=== PATIENT | male | born 1945 | race Caucasian/White ===

== ENCOUNTER → 2016-04-06 | Outpatient (CLI) | payer OTHER ==
[~2016-04-06] MED LIST: HYDR-5688 PO; IBUP-1050 PO; LPT20 PO; TAMS0.4C38 PO
== END | disposition home or self-care (01) ==
LOC: C.CPL 09:31
DX: Z01.810 Encounter for preprocedural cardiovascular examination (principal)

== ENCOUNTER → 2016-11-10 | Outpatient (CLI) | payer OTHER ==
--- NOTE | 2016-11-10 11:56 | DIAGNOSTIC IMAGING REPORT ---
CHEST 2 VIEWS ROUTINE HISTORY: 70 years-old Male COUGH R06.00,PAIN IN RT SHOULDER M25.511 acute cough with right shoulder pain COMPARISON: CT abdomen 07/30/2009 TECHNIQUE: Frontal and lateral views of the chest. FINDINGS: The cardiac silhouette is mildly enlarged. There is atherosclerosis of the aorta. No pneumothorax. Patchy multifocal perihilar and bibasilar alveolar opacities are noted with small right pleural effusion. These findings are best seen on the frontal projection. Postsurgical or post traumatic changes of the distal clavicles are noted. Degenerative changes are seen about the spine. IMPRESSION: 1. Patchy perihilar and bibasilar opacities suggest atelectasis or pneumonia. 2. Trace right pleural effusion. The above report was generated using voice recognition software. It may contain grammatical, syntax or spelling errors. Electronically signed by: Aniceto Christopher M.D. 11/10/2016 11:55 AM Dictated Date/Time: 11/10/2016 11:51 AM
--- NOTE | 2016-11-10 12:12 | DIAGNOSTIC IMAGING REPORT ---
R SHOULDER MIN 2 VIEWS ROUTINE HISTORY: 70 years-old Male COUGH R06.00,PAIN IN RT SHOULDER M25.511 acute right shoulder pain status post fall. COMPARISON: Chest radiograph of same day TECHNIQUE: 3 views of the right shoulder FINDINGS: The distal 1.5 cm portion of the right clavicle is absent suggesting posttraumatic or post surgical changes. Moderate degenerative changes of the glenohumeral joint are noted with background mild bone demineralization. There is spurring of the greater tuberosity with ill-defined linear calcifications noted inferior to the acromion. Decreased coracohumeral interval is noted, 5 mm. Ossifications measuring up to 6 mm are noted lateral to the greater tuberosity suspicious for fragmented osteophytes. 7 mm ossification adjacent to the medial humeral neck is suspicious for loose body. No acute fracture or dislocation is identified. And midlung lawrence are clear. IMPRESSION: 1. Moderate glenohumeral osteoarthritis without acute fracture or dislocation. 2. 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 3. Probable subacromial impingement with intra-articular loose bodies within the glenohumeral joint. 4. Linear calcifications inferior to the acromium may reflect calcific tendinosis or calcific bursitis. The above report was generated using voice recognition software. It may contain grammatical, syntax or spelling errors. Electronically signed by: Aniceto Christopher M.D. 11/10/2016 12:10 PM Dictated Date/Time: 11/10/2016 12:04 PM
== END | disposition home or self-care (01) ==
LOC: C.RAD 11:09
PROVIDERS: ATTEND Family Medicine
DX: R06.00 Dyspnea, unspecified (principal); M25.511 Pain in right shoulder; E11.9 Type 2 diabetes mellitus without complications; I10 Essential (primary) hypertension

== ENCOUNTER → 2017-01-05 | Outpatient (CLI) | payer OTHER ==
--- NOTE | 2017-01-05 16:00 | ECHOCARDIOGRAM REPORT ---
*NOTICE TO RECEIVING LIBERTARIAN AGENCY This information is strictly Confidential and protected under [place] law. [place] law prohibits you from making any further disclosure of this information unless further disclosure is expressly permitted by the written consent of the person to whom it pertains or is authorized by law. A general authorization for the release of medical or other information is not sufficient for this purpose. Hospital accepts no responsibility if the information is made available to any other person, INCLUDING THE PATIENT. Interpretation Summary * Name: MOOK CHOI JR Study Date: 01/05/2017 01:04 PM BP: 176/84 mmHg * Patient Location: [facility] HR: 63 * : 1945 (M/d/yyyy) Gender: Male Height: 65 in * Age: 71 yrs Ethnicity: CA Weight: 178 lb * Ordering Physician: Eliot Green * Referring Physician: Eliot Green * Performed By: Tram Kendall RDCS * * Reason For Study: Edema, Congestive Heart Failure * BSA: 1.9 m2 * Normal biventricular systolic function. * Mild concentric left ventricular hypertrophy. * Class 1 left ventricular diastolic dysfunction. * Borderline left atrial dilatation. * Trace pulmonic, mitral, and tricuspid regurgitation. * Normal estimated right ventricular systolic and central venous pressures. * -- Conclusions -- * Aortic valve sclerosis mild, without significant aortic valvular stenosis. Procedure Details * A complete two-dimensional transthoracic echocardiogram was performed (2D, M-mode, Doppler and color flow Doppler). Left Ventricle * The left ventricle is normal in size. * There is mild concentric left ventricular hypertrophy. * Ejection Fraction = 65-70%. * Left ventricular systolic function is normal. * A full diastolic examination was done with clinical findings of Class I diastolic dysfunction. * The left ventricular wall motion is normal. Right Ventricle * The right ventricle is normal in size and function. * The right ventricular systolic function is normal as assessed by tricuspid annular plane systolic excursion (TAPSE) (normal >1.5 cm). Atria * Borderline left atrial enlargement. * Right atrial size is normal. * No ASD detected; PFO is not assessed. Mitral Valve * The mitral valve is normal. * There is no mitral valve stenosis. * There is trace mitral regurgitation. Tricuspid Valve * The tricuspid valve is normal. * There is no tricuspid stenosis. * There is trace tricuspid regurgitation. * Right ventricular systolic pressure is normal. Aortic Valve * The aortic valve is trileaflet. * The aortic valve opens well. * Aortic valve sclerosis mild, without significant aortic valvular stenosis. * No aortic regurgitation is present. Pulmonic Valve * The pulmonic valve is not well visualized. * There is no pulmonic valvular stenosis. * Trace pulmonic valvular regurgitation. Great Vessels * The aortic root is normal size. Pericardium/Pleural * There is no pericardial effusion. Great Vessels * Normal inferior vena cava diameter and respiratory variation suggests normal central venous pressure. MMode 2D Measurements and Calculations IVSd 1.4 cm IVSs 1.6 cm LVIDd 4.7 cm LVIDs 3.1 cm LVPWd 1.4 cm LVPWs 1.8 cm IVS/LVPW 1.0 FS 35.0 % EDV(Teich) 102.6 ml ESV(Teich) 36.7 ml EF(Teich) 64.3 % EDV(cubed) 104.2 ml ESV(cubed) 28.6 ml EF(cubed) 72.6 % % IVS thick 18.0 % % LVPW thick 30.0 % LV mass(C)d 260.1 grams LV mass(C)dI 138.2 grams/m\S\2 LV mass(C)s 203.2 grams LV mass(C)sI 107.9 grams/m\S\2 SV(Teich) 66.0 ml SI(Teich) 35.0 ml/m\S\2 SV(cubed) 75.6 ml SI(cubed) 40.2 ml/m\S\2 Ao root diam 2.8 cm Ao root area 6.1 cm\S\2 ACS 1.6 cm LA dimension 3.9 cm LA/Ao 1.4 LVOT diam 1.7 cm LVOT area 2.4 cm\S\2 LVAd ap4 27.1 cm\S\2 LVLd ap4 7.8 cm EDV(MOD-sp4) 79.8 ml EDV(sp4-el) 80.1 ml LVAs ap4 13.4 cm\S\2 LVLs ap4 6.4 cm ESV(MOD-sp4) 26.2 ml ESV(sp4-el) 23.9 ml EF(MOD-sp4) 67.2 % EF(sp4-el) 70.1 % LVAd ap2 26.9 cm\S\2 LVLd ap2 7.5 cm EDV(MOD-sp2) 88.5 ml EDV(sp2-el) 81.6 ml LVAs ap2 12.8 cm\S\2 LVLs ap2 6.0 cm ESV(MOD-sp2) 27.5 ml ESV(sp2-el) 23.4 ml EF(MOD-sp2) 69.0 % EF(sp2-el) 71.4 % LVLd %diff -3.49 % EDV(MOD-bp) 84.4 ml LVLs %diff -6.98 % ESV(MOD-bp) 27.5 ml EF(MOD-bp) 67.4 % SV(MOD-sp4) 53.6 ml SI(MOD-sp4) 28.5 ml/m\S\2 SV(MOD-sp2) 61.1 ml SI(MOD-sp2) 32.4 ml/m\S\2 SV(MOD-bp) 56.8 ml SI(MOD-bp) 30.2 ml/m\S\2 SV(sp4-el) 56.2 ml SI(sp4-el) 29.9 ml/m\S\2 SV(sp2-el) 58.2 ml SI(sp2-el) 30.9 ml/m\S\2 Doppler Measurements and Calculations MV E max daniel 88.8 cm/sec MV A max daniel 121.2 cm/sec MV E/A 0.73 MV V2 max 119.1 cm/sec MV max PG 5.7 mmHg MV V2 mean 51.6 cm/sec MV mean PG 1.4 mmHg MV V2 VTI 44.6 cm MVA(VTI) 1.5 cm\S\2 MV P1/2t max daniel 94.9 cm/sec MV P1/2t 145.4 msec MVA(P1/2t) 1.5 cm\S\2 MV dec slope 191.2 cm/sec\S\2 MV dec time 0.19 sec Ao V2 max 223.2 cm/sec Ao max PG 20.0 mmHg Ao max PG (full) 11.7 mmHg Ao V2 mean 136.9 cm/sec Ao mean PG 9.2 mmHg Ao mean PG (full) 5.3 mmHg Ao V2 VTI 42.4 cm CORNELIA(I,A) 1.6 cm\S\2 CORNELIA(I,D) 1.6 cm\S\2 CORNELIA(V,A) 1.5 cm\S\2 CORNELIA(V,D) 1.5 cm\S\2 LV V1 max PG 8.3 mmHg LV V1 mean PG 4.0 mmHg LV V1 max 144.2 cm/sec LV V1 mean 91.6 cm/sec LV V1 VTI 29.3 cm SV(Ao) 258.6 ml SI(Ao) 137.3 ml/m\S\2 SV(LVOT) 68.8 ml SI(LVOT) 36.5 ml/m\S\2 PA V2 max 155.3 cm/sec PA max PG 9.6 mmHg PI max daniel 131.1 cm/sec PI max PG 6.9 mmHg PI dec slope 120.1 cm/sec\S\2 PI P1/2t 319.8 msec TR max daniel 238.6 cm/sec
== END | disposition home or self-care (01) ==
LOC: C.CPL 12:56
PROVIDERS: ATTEND Family Medicine
DX: I50.9 Heart failure, unspecified (principal); R60.9 Edema, unspecified; E03.9 Hypothyroidism, unspecified

== ENCOUNTER → 2017-02-04 | Outpatient (CLI) | payer OTHER ==
[2017-02-04 13:06] LABS: BASO % 0.7 %; COMPLETE YES; EOS % 3.4 %; HEMATOCRIT 53.3 % (42-52); IG% 0.4 %; LYMPH % 10.8 %; LYMPH ABS # 1.51 K/uL (1.2-3.4); MEAN CELL VOLUME 90.6 fL (80-100); MEAN CORPUSCULAR HGB CONC 34.1 g/dl (32-36); MEAN PLATELET VOLUME 10.7 fL (7.4-10.4); MONO % 8.6 %; NEUT % 76.1 %; PLATELET COUNT 216 K/uL (130-400); RED BLOOD COUNT 5.88 M/uL (4.7-6.1); WHITE BLOOD COUNT 13.94 K/uL (4.8-10.8)
[2017-02-04 13:23] LABS: ALT/SGPT 57 U/L (12-78); AST/SGOT 54 U/L (15-37); BLOOD UREA NITROGEN 18 mg/dl (7-18); BUN/CREATININE RATIO 13.7 (10-20); CALCIUM 8.4 mg/dl (8.5-10.1); CARBON DIOXIDE 25 mmol/L (21-32); CHLORIDE 106 mmol/L (98-107); CREATININE 1.33 mg/dl (0.60-1.40); GLUCOSE 143 mg/dl (70-99); POTASSIUM 4.2 mmol/L (3.5-5.1); SODIUM 136 mmol/L (136-145)
[2017-02-04 13:28] LABS: ALB/GLOB RATIO 0.9 (0.9-2); ALKALINE PHOSPHATASE 84 U/L (45-117)
== END | disposition home or self-care (01) ==
LOC: C.LAB 11:45
PROVIDERS: ATTEND Internal Medicine Pulmonary Disease
DX: I11.0 Hypertensive heart disease with heart failure (principal); I50.9 Heart failure, unspecified; E11.9 Type 2 diabetes mellitus without complications

== ENCOUNTER → 2017-02-09 | Outpatient (CLI) | payer OTHER ==
[~2017-02-09] MED LIST changes: +LISI-461 PO; +OPTIRAY 320 IV PRN
--- NOTE | 2017-02-09 08:44 | DIAGNOSTIC IMAGING REPORT ---
CT OF THE CHEST WITH IV CONTRAST CLINICAL HISTORY: FATIGUE, HYPERLIPIDEMIA, HYPERTENSION COMPARISON STUDY: Chest x-ray dated December 10, 2016 TECHNIQUE: Following the IV administration of 92 mL of Optiray-320, CT of the thorax was performed from the thoracic inlet to the lung bases. Images are reviewed in the axial, sagittal, and coronal planes. IV contrast was administered without complication. A dose lowering technique was utilized adhering to the principles of ALARA. CT DOSE: 891.43 mGy.cm FINDINGS: Thyroid: Imaged portions of the thyroid gland are normal in appearance. Thoracic aorta: The thoracic aorta is normal in course and caliber, noting standard 3-vessel arch anatomy. No aneurysm or dissection is seen. Pulmonary vasculature: The pulmonary trunk is normal in caliber. There are no central filling defects identified to suggest pulmonary embolus. Note that this examination was not protocoled for the evaluation of pulmonary emboli. HEART: The heart is borderline enlarged with minor coronary artery calcifications. Lungs and pleural spaces: The lungs and pleural spaces are clear. There is mild dependent atelectasis. There are areas of mild air trapping. There is a solid 3 mm left lower lobe pulmonary nodule as imaged on image #[id number]. In the absence of significant risk factors, no further follow-up is indicated. In a high risk patient, a 12 month follow-up is optional. There is mild lower lobe bronchial wall thickening with areas of mucous plugging. Mediastinum: There is no mediastinal lymphadenopathy. Mandi: Clear. Axilla: Clear. Upper abdomen: Partially visualized upper abdominal viscera is within normal limits. Skeletal structures: There are no lytic or blastic osseous lesions. Postsurgical changes are evident. IMPRESSION: 1. Lower lobe bronchial wall thickening with areas of mucous plugging 2. Slight mosaic attenuation suggesting air trapping 3. 3 mm solid left lower lobe pulmonary nodule. In the absence of significant risk factors, no further follow-up imaging is indicated Electronically signed by: Feliz Crenshaw M.D. 02/09/2017 8:42 AM Dictated Date/Time: 02/09/2017 8:21 AM
== END | disposition home or self-care (01) ==
LOC: C.CTS 08:03
PROVIDERS: ATTEND Internal Medicine Pulmonary Disease
DX: E78.5 Hyperlipidemia, unspecified (principal); I10 Essential (primary) hypertension; R53.83 Other fatigue; R91.1 Solitary pulmonary nodule; R91.8 Other nonspecific abnormal finding of lung field

== ENCOUNTER → 2017-02-22 | Outpatient (CLI) | payer OTHER ==
[~2017-02-22] MED LIST changes: -LISI-461 PO; -OPTIRAY 320 IV PRN
== END | disposition home or self-care (01) ==
LOC: C.LAB 14:25
PROVIDERS: ATTEND Internal Medicine Pulmonary Disease
DX: R53.83 Other fatigue (principal); R91.1 Solitary pulmonary nodule

== ENCOUNTER → 2017-02-24 | Day surgery (SDC) | payer OTHER ==
[~2017-02-24] VITALS: Ht 177.8 cm; Wt 110.0 kg
[~2017-02-24] MED LIST changes: +FENTANYL CITRATE INJ 50 MCG/1 ML 2 ML VIAL IV ONE; +HydrALAZINE HCL 20 MG/ML VIAL IV. ONE; +HydrALAZINE HCL 20 MG/ML VIAL ONE; +LIDOCAINE 4% INH SOLN 4 ML BTL NEB ONE; +LIDOCAINE HCL 2% LOCAL 50ML VIAL INSTIL ONE; +LIDOCAINE MPF 4% LOCAL INJ 5 ML AMP INH ONE; +LIDOCAINE VISCOUS 2% 100ML TOP ONE; +LISI-461 PO; +MIDAZOLAM HCL 5 MG/ML 1 ML VIAL IV ONE
[2017-02-24 08:15] VITALS: BP 183/89; PULSE 68; TEMP 36.4; O2SAT 96; Ht 177.8 cm; Wt 110.0 kg
[2017-02-24 09:00] LABS: PTT PATIENT 27.4 SECONDS (21.0-31.0)
--- NOTE | 2017-02-24 09:19 | History & Physical Bridge Note ---
H&P Re-Evaluation Bridge Note: I have examined the patient, reviewed the History & Physical and in the interval since the performance of the History & Physical I have noted the following changes of clinical significance: No changes noted
--- NOTE | 2017-02-24 09:20 | Pre Sedation Assessment ---
Pre Sedation Assessment General Date of Sedation: Feb 24, 2017. Vital Signs Past 12 Hours Date Time Temp Pulse Resp B/P (MAP) Pulse Ox O2 Delivery O2 Flow Rate FiO2 02/24/17 08:15 36.4 68 20 183/89 (120) 96 Room Air Pre-Sedation Airway Assessment Smoking Status: Never Smoker Hx of Sleep Apnea: No Short Thick Neck: Yes Thyro-mental Distance: < or =3 Finger Breadths Oral Cavity: WNL Mallampati Classification: Class III ASA Classification: Class II NPO Status Date of Last Intake of Fluids: Feb 23, 2017 Time of Last Intake of Fluids: 1800 Date of Last Intake of Solids: Feb 23, 2017 Time of Last Intake of Solids: 1700 Procedure Planning Contraindications for Sedation: None Current Medications Reviewed: Yes Notes The planned sedation has been discussed with the patient. Informed Consent was obtained. I have identified the patient, determined the appropriateness of sedation and have assessed the patient immediately prior to the procedure. All medicine(s) and interventions are by my order.
--- NOTE | 2017-02-24 10:05 | Discharge Instructions ---
Discharge Instructions Date of Service Feb 24, 2017. Admission Reason for Admission: Pulmonary Nodule *Dr Sharp To Do* Discharge Discharge Diagnosis / Problem: Chronic Mucopurulent Bronchitis Discharge Goals Goal(s): Therapeutic intervention Activity Recommendations Activity Limitations: resume your previous activity Lifting Limitations: none Exercise/Sports Limitations: none May Resume Sexual Activity: when tolerated Shower/Bathe: no limitations Driving or Machine Use: resume 1 day after discharge None . Current Hospital Diet Patient's current hospital diet: Discharge Diet Recommended Diet: Regular Diet, Low Sodium Diet (2gm Na) Fluid Restriction: None Pending Studies Studies pending at discharge: no Medical Emergencies . Who to Call and When: Medical Emergencies: If at any time you feel your situation is an emergency, please call 911 immediately. . Non-Emergent Contact Non-Emergency issues call your: [employer] Call Non-Emergent contact if: temperature is above 101 . . "Provider Documentation" section prepared by Ralph Sharp. . VTE Core Measure Inpt VTE Proph given/why not?: Treatment not indicated
[2017-02-24 10:15] VITALS: BP 138/77; PULSE 80; TEMP 36.8; O2SAT 96
[2017-02-24 10:30] VITALS: BP 131/65; PULSE 78; TEMP 36.7; O2SAT 95
--- NOTE | 2017-02-24 10:41 | OPERATIVE REPORT ---
DATE OF OPERATION: 02/24/2017 PROCEDURE: Fiberoptic bronchoscopy with bronchoalveolar lavage. INDICATIONS: Solitary pulmonary nodule/chronic chest congestion in a patient with chronic mucopurulent bronchitis and possible mucoid plugging. ANESTHESIA PREOPERATIVELY: None. ANESTHESIA DURING THE PROCEDURE: 3 mg IV Versed, 50 mcg IV fentanyl, 5 mg IV hydralazine, 20 mL of 2% Xylocaine spray above and below the cords, and 4% viscous Xylocaine intranasally. DESCRIPTION OF PROCEDURE: Fiberoptic bronchoscope was inserted into the right naris with minimal difficulty and passed to the level of the true vocal cords. The cords appeared to approximate normally with phonation without evidence of lesions or paralysis. The nasopharyngeal aperture was narrowed and appeared to obstruct with moderate sedation, suggesting obstructive sleep apnea probability. The cords were anesthetized. The scope was passed into the trachea and right and left tracheobronchial tree. The steve was sharp. The right main stem bronchus was explored initially and no endobronchial lesions were seen. Right upper lobe, the apical, posterior and anterior segments, bronchus intermedius, right middle lobe and the medial and lateral segments, and all basilar segments of right lower lobe were found to be free of endobronchial lesions. A moderate amount of mucopurulent secretion was lavaged and aspirated from the right lower lobe segmental bronchi until clear. Mucus pitting with bronchial crypts and clefts were prominently displayed throughout the right tracheobronchial tree and a moderate degree of inflammatory mucosal change was seen globally. Left tracheobronchial tree was then explored and similar findings were noted. The left upper lobe, the apical-posterior and anterior segments, lingular subdivision with the superior and inferior segments and all basilar segments of left lower lobe were found to be free of endobronchial lesions, but a moderate amount of mucopurulent secretion was lavaged from all lobar segments until clear. Mucous pitting was also prominently displayed. There was a moderate to severe degree of inflammatory/erythematous mucosal change seen with easy friability. Following lavage with normal saline, there was a steady ooze of hemorrhage, which eventually abated spontaneously. No brushings or biopsies were attempted. The procedure was terminated. The patient was given a treatment of Xopenex 1.25 mg and transferred to the medical treatment unit in hemodynamically stable without signs of respiratory compromise. The patient did have a marked hypertensive response to the procedure and was given 5 mg IV hydralazine with normalization of his blood pressure. We will await microbiological and cytologic examination of the bronchial washings. I attest to the content of the Intraoperative Record and any orders documented therein. Any exception s are noted below.
[2017-02-24 10:45] VITALS: BP 131/65; PULSE 76; O2SAT 96
[2017-02-24 11:15] VITALS: BP 131/65; PULSE 72; TEMP 36.5; O2SAT 96
[2017-02-24 11:47] VITALS: BP 120/67; PULSE 68; TEMP 36.9; O2SAT 96
== END | disposition home or self-care (01) ==
LOC: C.ACU 07:43
PROVIDERS: ATTEND Internal Medicine Pulmonary Disease
DX: R91.1 Solitary pulmonary nodule (principal); R09.89 Other specified symptoms and signs involving the circulatory and respiratory systems; J41.1 Mucopurulent chronic bronchitis; I50.9 Heart failure, unspecified; E11.9 Type 2 diabetes mellitus without complications; R53.83 Other fatigue; I11.0 Hypertensive heart disease with heart failure; E66.9 Obesity, unspecified; Z79.899 Other long term (current) drug therapy

== ENCOUNTER → 2017-03-09 | Outpatient (CLI) | payer OTHER ==
[~2017-03-09] MED LIST changes: -FENTANYL CITRATE INJ 50 MCG/1 ML 2 ML VIAL IV ONE; -HYDR-5688 PO; -HydrALAZINE HCL 20 MG/ML VIAL IV. ONE; -HydrALAZINE HCL 20 MG/ML VIAL ONE; -LIDOCAINE 4% INH SOLN 4 ML BTL NEB ONE; -LIDOCAINE HCL 2% LOCAL 50ML VIAL INSTIL ONE; -LIDOCAINE MPF 4% LOCAL INJ 5 ML AMP INH ONE; -LIDOCAINE VISCOUS 2% 100ML TOP ONE; -MIDAZOLAM HCL 5 MG/ML 1 ML VIAL IV ONE
--- NOTE | 2017-03-10 04:57 | PAP/PSG TECHNICIAN REPORT ---
[facility] [employer] Polysomnogram Report Study name: None Report date: 03/10/2017 Study date: 03/09/2017 Referring Physician: Ralph Sharp MD Name: MOOK CHOI Interpreting Physician: Jose Armando Jones D.O. Date of : 1945 Manager Grocery: Marie Smith [facility]. Sex: Male Age: 71 StudyType: PSG Weight: 246 lbs 18.5 inches Height: 71 years, Height 5' 10" Neck Circum: BMI: 35.29 Medications: Furosemide 40 mg, Lisinopril 10 mg, Adviar 250-50 MCG, Albuterol ,Omeprazole, Tamsulosin Patient History 71 yr. old male here for a diagnostic sleep study. Patient complains of EDS, snoring, and witnessed apneas. Patient stated he will get up at 3 am. ESS . Parameters Monitored NPSG: E1-M2, E2-M1, Fp1-M2, Fp2-M1, F3-M2, F4-M2, F4-M1, C3-M2, C4-M2, C4-M1, O1-M2, O2-M2, O2-M1, T3-M2, T4-M1, P3-M2, P4-M1, CHIN1, CHIN2, HR, EKG, Legs, PFLOW, SNOR, FLOW, CFLOW, Tidal Volume, THOR, ABDO, SpO2, PLTH, CPRESS, ETCO2 Wave, ETCO2, pH Sleep Architecture Sleep Stages Time at Lights Off 8:29:10 PM STAGES Time (min.) TST (%) Time at Lights On 2:56:10 AM Wake 82.0 -- Total Recording Time (TRT) 388.00 min. N1 37.0 12 Total Sleep Period (TSP) 324.0 min. N2 187.5 61 Total Sleep Time (TST) 305.0min. N3 32.5 11 Awake Time 83.0 min. REM 48.0 16 Wake after Sleep Onset 73.5 min. Sleep Efficiency (SE) 79 % Sleep Onset Latency (ZACHARY) 8.5 min. Number of Stage 1 Shifts None Awakenings 23 Stage Changes 94 Number of REM periods 5 REM 48.0 16 REM Latency 36.0 min. NREM 257.0 84 Body Position Analysis Supine Right Left Side Prone Vertical Total Sleep Time (min.) 44.6 120.0 0.0 120.00 0.0 207.5 Total Sleep Time (%) 0% 39% 0% 39 0% 100% Total Sleep Time REM (min.) 0.0 21.0 0.0 None 0.0 27.0 Total Sleep Time NREM (min.) 0.0 99.0 0.0 None 0.0 158.0 Intermittent Wake (min.) 44.6 14.1 0.0 None 0.0 22.5 Total Sleep Period (%) 0% None None None None None Arousals Myoclonus (PLM) * Events Count Index Events Count Index Spontaneous 12 2 Events Awake (PLMW) 47 34.4 Respiratory 5 1.0 Events Asleep w/ Arousal (PLMA) 7 1.4 PLM 7 1 Events Asleep w/o Arousal (PLMS) 33 6.5 Snoring 19 4 Total Asleep 40 7.9 Total 41 8 Total 87 13 Respiratory Analysis * CA OA MA CH H RERA Total Count 0 0 0 0 23 0 23 Index 0.0 0.0 0.0 0 4.5 0 4.5 Mean Duration 0.0 0.0 0.0 0.00 35.7 0.0 35.7 Longest Duration 0.0 0.0 0.0 0.00 0.0 0.0 84.5 Respiratory Event Summary Total Supine ~Supine Right Left Prone REM NREM Apneas Count 0 N/A 0 0 N/A N/A 0 0 Index 0.0 N/A 0 0.0 N/A N/A 0 0 Hypopneas (4% Desat) Count 23 N/A 23 0 N/A N/A 6 17 Index 4.5 N/A 5 0.0 N/A N/A 7.5 4.0 Apneas & All Hypopneas Count 23 N/A 23 0 N/A N/A 6 17 Index 4.5 N/A 5 0 N/A N/A 7.5 4.0 Respiratory Events (Professional Services Specialist+All Hyp+RERA) Count 23 N/A 23 0 N/A N/A 6 17 Index 4.5 N/A 5 0.0 N/A N/A 7.5 4.0 Respiratory Related Arousal Count 5 N/A 5 0 N/A N/A 0 5 Index 1.0 N/A 1 0 N/A N/A 0 1 Snoring Analysis Supine Right Left Prone REM NREM Total Snore duration 112.1 min Snores count N/A 1,242 N/A N/A 356 2,900 3,256 Snore mean duration 2.1 Sec Snores index N/A 621 N/A N/A 445.0 677.0 640.5 TST with snoring (%) 36.7% Desaturation Event Summary: Minimum %SpO2 Event Count Mean/Min/Max Duration(sec.) Desaturation Index % Time In Bed > 90 24 45.0 / 25.0 / 60.0 4.2 89.9 86 - 90 0 N/A 0.0 10.0 81 - 85 0 N/A 0.0 0.1 76 - 80 0 N/A 0.0 0.0 71 - 75 0 N/A 0.0 0.0 66 - 70 0 N/A 0.0 0.0 61 - 65 0 N/A 0.0 0.0 56 - 60 0 N/A 0.0 0.0 51 - 55 0 N/A 0.0 0.0 < 50 0 N/A 0.0 0.0 Total REM NREM Awake <50% 0.0 min. 0.0 min. 0.0 min. 0.0 min. 51 - 60% 0.0 min. 0.0 min. 0.0 min. 0.0 min. 61 - 70% 0.0 min. 0.0 min. 0.0 min. 0.0 min. 71 - 80% 0.0 min. 0.0 min. 0.0 min. 0.0 min. 81 - 90% 38.4 min. 15.3 min. 18.8 min. 4.3 min. 91 - 100% 341.2 min. 32.7 min. 238.2 min. 70.4 min. Average 93 91 93 93 Minimum SpO2 82 86 86 82 Desaturation Event Index 3.7 8.8 3.3 2.2 # Desat. Events below 89% 6 4 2 N/A Time(%) with Saturation below 89% 2.5 1.2 1.0 0.3 Time(min.) with Saturation below 89% 9.7 4.7 3.9 1.0 Time (mins) REM (mins) NREM (mins) % of TST SpO2 Below 90% 18 7 N11 7.0 SpO2 Below 88% 5 0 0 1 Heart Rate Analysis Min (bpm) Max (bpm) Average (bpm) Awake 34 85 62 NREM 48 77 58 REM 50 72 57 Overall 48 77 58 Supplemental O2 Values Minimum O2 level: None Value Start Time End Time Manager [employer] Comments Mr. Choi slept in the right, upright, and supine and prone positions. No cardiac arrhythmia or PLMs noted. No bruxism noted. Snoring was noted and scored as a 4 on a scale of 0 through 5. (0=no snoring, 5=snoring loud enough to be heard through a closed door or down the chase way) Mr. Choi awoke to use the restroom once during the night. Mr. Choi stated, that was a normal night. The final report will be interpreted and signed by a sleep physician. The completed physician report will then be placed in the patient medical record. Therapy (cm H2O) 0 TIB (min.) 387.0 TST (min.) 305.0 Sleep Onset (min.) 8.5 REM Onset From Sleep (min.) 36.0 Sleep Efficiency % 79 Wakefulness (%) 21 Wakefulness (min.) 83.0 NREM 1 (%) 12 NREM 1 (min.) 37.0 NREM 2 (%) 61 NREM 2 (min.) 187.5 NREM 3 (%) 11 NREM 3 (min.) 32.5 REM (%) 16 REM (min.) 48.0 # Arousals 41 Arousal Index 8 # Snore 3,256 Snore Index 640.5 AHI 4.5 AHI Supine N/A AHI Non-Supine 5 NREM AHI 4.0 REM AHI 7.5 RDI 4.5 # Obstructive Apnea 0 # Central Apnea 0 # Mixed Apnea 0 # Hypopneas 23 RERAs 0 Total Respiratory Events 24 Time Below SpO2 89% (min.) 8.7 Mean NREM SpO2 (%) 93 Mean REM SpO2 (%) 91 Mean Sleep SpO2 (%) 93 Min NREM SpO2 (%) 86 Min REM SpO2 (%) 86 Position Supine (min.) 44.6 Position Non-supine (min.) 305.0 LM Index Sleep 7.9 LM Index NREM 7.9 LM Index REM 7.5 Mean Heart Rate (bpm) 58 Min Heart Rate (bpm) 48
--- NOTE | 2017-03-12 17:29 | Sleep Study ---
Sleep Study Report Date of Service: 03/09/2017 Sleep Study Report CLINICAL DATA: The patient is a 71-year-old male with a history of snoring, observed apneas, and excessive daytime somnolence. His Meraux Sleepiness Scale score was 13 out of a possible 24. This was an in-lab overnight polysomnography SLEEP ARCHITECTURE: The total sleep period was 324 minutes. The total sleep time was 305 minutes. The sleep efficiency was moderately reduced to 79%. The sleep latency was 8.5 minutes. The wake after sleep onset was elevated at 73.5 minutes. The REM latency was short at 36 minutes. Sleep consisted of stage N1 12%, stage N2 61% , stage N3 11%, stage REM 16%. AROUSAL DATA: The patient had a total of 41 arousals including 12 spontaneous arousals, 5 respiratory arousals, 7 PLM arousals, and 19 snoring arousals. The arousal index was 8. PLM DATA: The patient had 40 periodic limb movements for a PLM index of 7.9. There were 7 arousals associated with limb movements for a PLM arousal index of 1.4. EKG: The underlying cardiac rhythm was normal sinus. The cardiac rates ranged from 48-77 beats per minute. The average heart rate was 58 beats per minute. No a arrhythmias were noted. RESPIRATORY DATA: The patient had a total of 23 respiratory events, all hypopneas. Hypopneas were scored according to the 4% desaturation rule. The mean duration of the hypopneas was 35.7 seconds. The apnea-hypopnea index was 4.5 events per hour. This would be at the upper limits of normal and would not represent significant sleep apnea. OXIMETRY DATA: The average saturation for the night was 93%. The minimum saturation was recorded as 82%. This appears to be artifact. The actual minimum saturation is approximately 88%. There was recorded 9.7 minutes with saturations less than 89%. It is suspected that it was actually much less than that. This would be due to artifact. SHIFTMAN COMMENTS: The patient slept on the right, upright, and supine and prone positions. No cardiac arrhythmias noted. No bruxism noted. Snoring was noted and scored as a 4 on a scale of 0 through 5. The patient awakened to use the restroom 1 time during the night. IMPRESSIONS: 1. Primary snoring 2. No evidence of significant obstructive sleep apnea COMMENTS: The patient wanted to get up at 3:00 a.m.. Lights out occurred at 8:29 p.m.. The sleep efficiency was modestly reduced. This was mainly related to the fact he had no sleep after 2:01 a.m.. It is unknown if this is his normal sleep- wake schedule. He had loud snoring. He did not have significant sleep apnea. RECOMMENDATIONS: 1. If possible the patient should avoid sleeping in the supine position. There is typically less snoring and respiratory events while supine. 2. Weight loss is advised in light of the elevation of body mass index of 35.29. 3. The patient should be advised the appropriate principles of sleep hygiene including having a regular sleep-wake schedule and allowing approximately 7.5 hours of sleep time per night. 4. The patient should follow up with Dr. Sharp. Copies To 1: Jose Armando Jones DO; Eliot Green M.D.; Ralph Sharp M.D.
== END | disposition home or self-care (01) ==
LOC: C.NEUR 20:00
PROVIDERS: ATTEND Internal Medicine Pulmonary Disease
DX: R06.83 Snoring (principal); R53.83 Other fatigue; I10 Essential (primary) hypertension

== ENCOUNTER → 2017-03-10 | Outpatient (CLI) | payer OTHER ==
[2017-03-10 17:43] LABS: BLOOD UREA NITROGEN 19 mg/dl (7-18); CREATININE 1.46 mg/dl (0.60-1.40)
== END | disposition home or self-care (01) ==
LOC: C.LAB1850 16:18
PROVIDERS: ATTEND Internal Medicine Pulmonary Disease
DX: E11.9 Type 2 diabetes mellitus without complications (principal); I10 Essential (primary) hypertension